=== PATIENT | female | born 1990 | race Caucasian/White ===

== ENCOUNTER 2023-04-25 17:01 | Inpatient (IN) | payer SELFPAY ==
[2023-04-25] VITALS (134 sets, daily range): BP systolic 112–190; BP diastolic 56–105; PULSE 66–251; RESP 15–18; TEMP 36.6–36.8; O2SAT 83–100; BMI 28.3
--- NOTE | 2023-04-25 13:58 | CT_ITS ---
STUDY: CT ABDOMEN AND PELVIS WITH CONTRAST REASON FOR EXAM: Female, 33 years old. RUQ pain, vaginal delivery yesterday, hx GB problems 5 years ago RADIATION DOSAGE (If Supplied By Facility): CTDIvol = ( 12.40 ) mGy, DLP = ( 831.43 ) mGycm TECHNIQUE: Transaxial images were obtained from the dome of the diaphragm to the symphysis pubis without oral contrast. IV 100mL Isovue-300 was administered. Sagittal and coronal images were reconstructed. Individualized dose optimization techniques were used for this CT. COMPARISON: None. FINDINGS: Small bilateral pleural effusions with bibasilar atelectasis. The visualized portions of the heart are within normal limits. Normal liver. There is contraction of the gallbladder. Questionable gallstones and thickening of the gallbladder wall. Minimal degree of central intrahepatic biliary ductal dilatation. Correlation with ultrasound is recommended. Normal spleen. Normal pancreas. Normal bilateral adrenal glands. Normal right kidney. Normal left kidney. Normal visualized stomach. Normal small intestine. Normal colon. The appendix is visualized and appears normal. Normal abdominal aorta. Normal inferior vena cava. Normal retroperitoneum. Normal urinary bladder. Diffuse enlargement of the uterus with increased vascularity and prominent endometrial thickening. Normal abdominal wall. Normal osseous structures. CT/Abdomen/Pelvis W IV Cont ONLY IMPRESSION: Diffuse enlargement of the uterus with increased vascularity and endometrial thickening in keeping with recent vaginal delivery. I cannot rule out retained products of conception. Correlation with ultrasound of the uterus is recommended as well as ultrasound of the gallbladder. Thickening of the gallbladder wall and contraction and possible gallstones. Small bilateral pleural effusions with bibasilar atelectasis. Electronically Signed: John Hearn MD at 15:21 EDT ,
[2023-04-25] MEDS: Lactated Ringers 1,000 ML 30 ML IV (14:00)
[2023-04-25 14:49] LABS: Hematocrit 30.7 % (37-47); Hemoglobin 10.7 g/dL (12.0-15.0); Mean Corp Hgb Conc 34.9 g/dL (32-36); Mean Corpuscular Hgb 33.6 pg (27.0-32.0); Mean Corpuscular Volume 96.5 fL (81-99); Mean Platelet Vol. 10.4 fl (6.2-12.0); Platelet Count 123 K/mm3 (150-450); RBC Distribution Width CV 13.2 % (11.6-14.6); RBC Distribution Width SD 46.8 fl (35.1-43.9); Red Blood Count 3.18 M/mm3 (4.2-5.4); White Blood Count 11.4 K/mm3 (4.4-11.0)
[2023-04-25 15:00] LABS: CREATININE FINGERSTICK < 1.0 mg/dL (0.55-1.02); EGFR FINGERSTICK > 60.0000 mL/min (>60)
[2023-04-25 15:00] LABS: AST(SGOT) 200 U/L (15-37); Alanine Aminotransfer ALT/SGPT 198 U/L (13-56); Creatinine, Serum 0.71 mg/dL (0.55-1.02); EST Glomerular Filtration Rate 101 mL/min (>60); Est Glom Filt Rate - Afr Amer 123 mL/min (>60); Uric Acid 5.8 mg/dL (2.6-6.0)
[2023-04-25] MEDS: Magnesium Sulfate 4gm/100mL 4 GM/100 ML IV.SOLN. IV (15:25)
[2023-04-25] MEDS: Magnesium Sulfate 20 GM/500 ML BAG IV (15:45)
[2023-04-25] MEDS: NIFEdipine 30 MG Tablet PO (15:48)
[2023-04-25 16:11] LABS: Prothrombin Time (Protime)PT. 12.9 SECONDS (11.7-14.9)
[2023-04-25 16:12] LABS: Partial Thromboplast Time 28.1 Seconds (24.1-36.2)
[2023-04-25 16:26] LABS: Fibrinogen 311 mg/dl (203-444)
[2023-04-25] MEDS: Labetalol (Prefilled) 20 MG/4 ML IV ×3 (16:30→22:51)
--- NOTE | 2023-04-25 16:53 | PCM.HP.OB ---
HPI - General HPI Narrative PATSY CONNELLY, is a 33 y/o who presents to L&D with a community health worker after delivery at a birthing center late last night. Around 4 am she started vomiting and complaining of right upper quadrant pain. Her blood pressures were elevated and the deputy county attorney called for advice. It was recommended that she bring her patient here or to the nearest emergency location. Upon arrival the patient denies nausea or current pain. She denies headaches, visual changes, chest pain, or shortness of breath. A CT was ordered stat and showed the following: FINDINGS: Small bilateral pleural effusions with bibasilar atelectasis. The visualized portions of the heart are within normal limits. Normal liver. There is contraction of the gallbladder. Questionable gallstones and thickening of the gallbladder wall. Minimal degree of central intrahepatic biliary ductal dilatation. Correlation with ultrasound is recommended. Normal spleen. Normal pancreas. Normal bilateral adrenal glands. Normal right kidney. Normal left kidney. Normal visualized stomach. Normal small intestine. Normal colon. The appendix is visualized and appears normal. Normal abdominal aorta. Normal inferior vena cava. Normal retroperitoneum. Normal urinary bladder. Diffuse enlargement of the uterus with increased vascularity and prominent endometrial thickening. Normal abdominal wall. Normal osseous structures. CT/Abdomen/Pelvis W IV Cont ONLY IMPRESSION: Diffuse enlargement of the uterus with increased vascularity and endometrial thickening in keeping with recent vaginal delivery. I cannot rule out retained products of conception. Correlation with ultrasound of the uterus is recommended as well as ultrasound of the gallbladder. Thickening of the gallbladder wall and contraction and possible gallstones. Small bilateral pleural effusions with bibasilar atelectasis. MFM from [place] was consulted and recommended us repeat the labs in 6 hours and if worsening would consider transport. PFSH PFSH Home Medications calcium carbonate 600 mg calcium (1,500 mg) tablet (Calcium) 600 mg PO DAILY 04/25/23 [History Last Taken 04/24/23] vit no.133-ferrous fumarate 28 mg-folic acid 800 mcg tablet () tab PO 04/25/23 [History Last Taken 04/24/23] Allergy/AdvReac Type Severity Reaction Status Date / Time malave Allergy Mild Other Verified 04/25/23 15:43 house dust Allergy Mild Other Verified 04/25/23 15:43 tree and shrub pollen Allergy Mild Other Verified 04/25/23 15:43 ROS Constitutional Constitutional: Denies change in weight, fatigue, fever(s), headache(s), poor appetite or weakness Eyes Eyes: Denies blurry vision, change in vision, seeing flashes or spots in vision ENT HEENT: Denies dizziness, headache(s), loss taste/smell or sore throat Cardiovascular Cardiovascular: Denies chest pain, dizziness, dyspnea, irregular heart rhythm, leg edema, palpitations, rapid heart rate or vomiting Respiratory/Chest Respiratory/Chest: Denies chest tightness, cough, dyspnea or breast pain Gastrointestinal Gastrointestinal: Denies abdominal pain, anorexia, constipation, cramping, diarrhea, hemorrhoids, vomiting or weight changes Genitourinary Genitourinary: Denies dysuria, flank pain, genital lesions, genital pain, urinary frequency or urinary urgency Musculoskeletal Musculoskeletal: Denies back pain, difficulty walking, joint pain, limited range of motion, muscle cramps or numbness Integumentary Integumentary: Denies lesions or unusual bruising Neurologic Neurologic: Denies abnormal movements, abnormal speech, dizziness, numbness, seizure-like activity or syncope Psychiatric Psychiatric: Denies anxiety, behavioral changes, change in appetite, change in libido, cognitive impairment, confusion, depression, difficulty concentrating, hallucinations or suicidal thoughts Endocrine Endocrinology: Denies excessive sweating, polydipsia or polyuria Hematologic/Lymphatic Hematologic/Lymphatic: Denies easy bleeding, easy bruising or lymphadenopathy Allergic/Immunologic Allergic/Immunologic: Denies itchy eyes, lip swelling, seasonal rhinorrhea, rhinitis, throat swelling, tongue swelling, eczemia, wheezing or asthma Vital Signs Vital Signs Vital Signs: 04/25/23 14:08 04/25/23 14:08 04/25/23 15:10 Temperature Temperature Source Pulse Rate 81 165 H Respiratory Rate Respiratory Effort Respiratory Depth Respiratory Pattern Blood Pressure 151/98 H Blood Pressure Mean BP Systolic 151 BP Diastolic 98 Blood Pressure Source Blood Pressure Position Blood Pressure Location Pulse Ox Oxygen Delivery Method 04/25/23 15:10 04/25/23 15:11 04/25/23 15:11 Temperature Temperature Source Pulse Rate 69 Respiratory Rate Respiratory Effort Respiratory Depth Respiratory Pattern Blood Pressure 170/103 H Blood Pressure Mean BP Systolic 170 BP Diastolic 103 Blood Pressure Source Blood Pressure Position Blood Pressure Location Pulse Ox 83 Oxygen Delivery Method 04/25/23 15:13 04/25/23 15:13 04/25/23 15:18 Temperature Temperature Source Pulse Rate 71 73 Respiratory Rate Respiratory Effort Respiratory Depth Respiratory Pattern Blood Pressure Blood Pressure Mean BP Systolic BP Diastolic Blood Pressure Source Blood Pressure Position Blood Pressure Location Pulse Ox 98 Oxygen Delivery Method 04/25/23 15:18 04/25/23 15:23 04/25/23 15:23 Temperature Temperature Source Pulse Rate 78 Respiratory Rate Respiratory Effort Respiratory Depth Respiratory Pattern Blood Pressure Blood Pressure Mean BP Systolic BP Diastolic Blood Pressure Source Blood Pressure Position Blood Pressure Location Pulse Ox 98 98 Oxygen Delivery Method 04/25/23 15:28 04/25/23 15:28 04/25/23 15:25 Temperature Temperature Source Temporal Pulse Rate 83 Respiratory Rate Respiratory Effort Respiratory Depth Respiratory Pattern Blood Pressure Blood Pressure Mean BP Systolic BP Diastolic Blood Pressure Source Blood Pressure Position Blood Pressure Location Pulse Ox 97 Oxygen Delivery Method 04/25/23 15:33 04/25/23 15:33 04/25/23 15:38 Temperature Temperature Source Pulse Rate 87 Respiratory Rate Respiratory Effort Respiratory Depth Respiratory Pattern Blood Pressure 153/99 H Blood Pressure Mean BP Systolic 153 BP Diastolic 99 Blood Pressure Source Blood Pressure Position Blood Pressure Location Pulse Ox 97 Oxygen Delivery Method 04/25/23 15:38 04/25/23 15:38 04/25/23 15:43 Temperature Temperature Source Pulse Rate 77 80 Respiratory Rate Respiratory Effort Respiratory Depth Respiratory Pattern Blood Pressure Blood Pressure Mean BP Systolic BP Diastolic Blood Pressure Source Blood Pressure Position Blood Pressure Location Pulse Ox 97 Oxygen Delivery Method 04/25/23 15:43 04/25/23 15:48 04/25/23 15:48 Temperature Temperature Source Pulse Rate 84 Respiratory Rate Respiratory Effort Respiratory Depth Respiratory Pattern Blood Pressure Blood Pressure Mean BP Systolic BP Diastolic Blood Pressure Source Blood Pressure Position Blood Pressure Location Pulse Ox 97 97 Oxygen Delivery Method 04/25/23 15:53 04/25/23 15:53 04/25/23 15:53 Temperature Temperature Source Pulse Rate 77 Respiratory Rate Respiratory Effort Respiratory Depth Respiratory Pattern Blood Pressure 160/102 H Blood Pressure Mean BP Systolic 160 BP Diastolic 102 Blood Pressure Source Blood Pressure Position Blood Pressure Location Pulse Ox 97 Oxygen Delivery Method 04/25/23 15:53 04/25/23 15:58 04/25/23 15:58 Temperature Temperature Source Pulse Rate 73 77 Respiratory Rate Respiratory Effort Respiratory Depth Respiratory Pattern Blood Pressure Blood Pressure Mean BP Systolic BP Diastolic Blood Pressure Source Blood Pressure Position Blood Pressure Location Pulse Ox 99 Oxygen Delivery Method 04/25/23 16:03 04/25/23 16:03 04/25/23 16:08 Temperature Temperature Source Pulse Rate 80 Respiratory Rate Respiratory Effort Respiratory Depth Respiratory Pattern Blood Pressure 164/105 H Blood Pressure Mean BP Systolic 164 BP Diastolic 105 Blood Pressure Source Blood Pressure Position Blood Pressure Location Pulse Ox 97 Oxygen Delivery Method 04/25/23 16:08 04/25/23 16:08 04/25/23 16:10 Temperature Temperature Source Pulse Rate 75 Respiratory Rate Respiratory Effort Respiratory Depth Respiratory Pattern Blood Pressure Blood Pressure Mean BP Systolic BP Diastolic Blood Pressure Source Blood Pressure Position Blood Pressure Location Pulse Ox 98 83 Oxygen Delivery Method 04/25/23 15:40 04/25/23 16:32 04/25/23 16:32 Temperature Temperature Source Temporal Pulse Rate 81 Respiratory Rate Respiratory Effort Respiratory Depth Respiratory Pattern Blood Pressure 169/96 H Blood Pressure Mean BP Systolic 169 BP Diastolic 96 Blood Pressure Source Blood Pressure Position Blood Pressure Location Pulse Ox Oxygen Delivery Method 04/25/23 16:32 04/25/23 16:32 04/25/23 16:32 Temperature Temperature Source Pulse Rate 68 Respiratory Rate Respiratory Effort Respiratory Depth Respiratory Pattern Blood Pressure 162/94 H Blood Pressure Mean BP Systolic 162 BP Diastolic 94 Blood Pressure Source Blood Pressure Position Blood Pressure Location Pulse Ox 99 Oxygen Delivery Method 04/25/23 16:37 04/25/23 16:37 04/25/23 16:42 Temperature Temperature Source Pulse Rate 78 78 Respiratory Rate Respiratory Effort Respiratory Depth Respiratory Pattern Blood Pressure Blood Pressure Mean BP Systolic BP Diastolic Blood Pressure Source Blood Pressure Position Blood Pressure Location Pulse Ox 99 Oxygen Delivery Method 04/25/23 16:42 04/25/23 16:47 04/25/23 16:47 Temperature Temperature Source Pulse Rate 72 Respiratory Rate Respiratory Effort Respiratory Depth Respiratory Pattern Blood Pressure 150/92 H Blood Pressure Mean BP Systolic 150 BP Diastolic 92 Blood Pressure Source Blood Pressure Position Blood Pressure Location Pulse Ox 98 Oxygen Delivery Method 04/25/23 16:47 04/25/23 16:47 04/25/23 16:52 Temperature Temperature Source Pulse Rate 75 75 Respiratory Rate Respiratory Effort Respiratory Depth Respiratory Pattern Blood Pressure Blood Pressure Mean BP Systolic BP Diastolic Blood Pressure Source Blood Pressure Position Blood Pressure Location Pulse Ox 98 Oxygen Delivery Method 04/25/23 16:52 04/25/23 15:25 04/25/23 15:40 Temperature 98.0 F 97.8 F Temperature Source Temporal Temporal Pulse Rate 79 73 Respiratory Rate 16 15 Respiratory Effort Normal Respiratory Depth Normal Respiratory Pattern Normal Blood Pressure 170/103 H 153/99 H Blood Pressure Mean 125 117 BP Systolic BP Diastolic Blood Pressure Source Monitor Monitor Blood Pressure Position Semi-Fowlers Semi-Fowlers Blood Pressure Location Right Arm Right Arm Pulse Ox 98 98 97 Oxygen Delivery Method Room Air Room Air 04/25/23 15:55 04/25/23 16:10 Temperature Temperature Source Pulse Rate 73 75 Respiratory Rate 16 15 Respiratory Effort Respiratory Depth Respiratory Pattern Blood Pressure 160/102 H 164/105 H Blood Pressure Mean 121 124 BP Systolic BP Diastolic Blood Pressure Source Monitor Monitor Blood Pressure Position Semi-Fowlers Semi-Fowlers Blood Pressure Location Right Arm Right Arm Pulse Ox 97 98 Oxygen Delivery Method Room Air Room Air Weight Weight: 164 lb 12.8 oz Body Mass Index (BMI) 28.3 Physical Exam Const alert, oriented x3, no apparent distress and healthy appearing General Appearance: cooperative; Negative for anxious HEENT normocephalic Face and Sinus: normal facial exam Eyes EOMs intact bilaterally and no scleral icterus General Eye: normal appearance of both eyes Neck full ROM and supple Lymph Lymphatic: no lymphadenopathy noted Chest Chest: abnormal inspection of the chest Resp normal respiratory effort Effort and Inspection: able to speak in complete sentences Cardio regular rate GI soft to palpation and non-tender Palpation: soft; Negative for tender Back/Spine no CVA tenderness Extremity normal to inspection, full ROM and no clubbing, cyanosis or edema General Extremity: Negative for calf tenderness or edema Skin Lesions: no lesions Rashes: no rashes Psych mental status grossly normal Labs Labs Labs: Hct 30.7 % (37-47) L Hgb 10.7 g/dL (12.0-15.0) L Assessment & Plan (1) HELLP syndrome, delivered, current hospitalization: PLAN: 1. labs: pts are currently 123 and LFTs are 200 and 198. coags are stable - rpt in [address] shows no evidence of hepatomegaly but does show some gall bladder thickening and stones. - pain is zero/10 currently. will reassess after she eats if need to consult GS - motrin and percocet prn. 3. hypertension- pt was given procardia 30 xl. Hypertensive emergency protocol ordered. will continue procardia 30 xl bid 4. plan for daily weights 5. regular diet 6. ok for baby to come to unit to breast feed and frey. Charges/Coding Multi Select Codes Visit Charges Visit Charges: 78984 Init Hosp L3
--- NOTE | 2023-04-25 17:18 | NURSING ---
YEHUDA Schilling assuming care.
--- NOTE | 2023-04-25 17:23 | NURSING ---
1650: on unit assessing pt and discussing plan of care. Pt verb understanding and agrees with plan. stating [facility] recommends keeping pt here and repeating labs at 2000 tonight.
--- NOTE | 2023-04-25 17:24 | NURSING ---
1400: Anabelle Ny called prior to arrival w/ pt's history. giving orders for CT scan and pre-e labs.
--- NOTE | 2023-04-25 17:26 | NURSING ---
1623: Called . Aware initial BP 151/98 with epigastric pain. okay with pt going to CT scan at this time.
--- NOTE | 2023-04-25 17:32 | NURSING ---
1625: ordering labetelol protocol for BP's 164/105 and 160/102. aware of all pre-e lab work as well. stating she called MFM and rec. to repeat CBC,CMP, Coags, and uric acid at 1999.
--- NOTE | 2023-04-25 17:36 | NURSING ---
1500: ordering magnesium sulfate and procardia 30 mg XL.
[2023-04-25 20:04] LABS: Hematocrit 35.2 % (37-47); Hemoglobin 12.4 g/dL (12.0-15.0); Mean Corp Hgb Conc 35.2 g/dL (32-36); Mean Corpuscular Hgb 33.6 pg (27.0-32.0); Mean Corpuscular Volume 95.4 fL (81-99); Mean Platelet Vol. 9.9 fl (6.2-12.0); Platelet Count 114 K/mm3 (150-450); RBC Distribution Width CV 13.2 % (11.6-14.6); RBC Distribution Width SD 46.4 fl (35.1-43.9); Red Blood Count 3.69 M/mm3 (4.2-5.4); White Blood Count 10.2 K/mm3 (4.4-11.0)
[2023-04-25 20:15] LABS: Prothrombin Time (Protime)PT. 12.8 SECONDS (11.7-14.9)
[2023-04-25 20:16] LABS: Partial Thromboplast Time 26.7 Seconds (24.1-36.2)
[2023-04-25 20:22] LABS: AST(SGOT) 204 U/L (15-37); Alanine Aminotransfer ALT/SGPT 210 U/L (13-56); Creatinine, Serum 0.56 mg/dL (0.55-1.02); EST Glomerular Filtration Rate 134 mL/min (>60); Est Glom Filt Rate - Afr Amer 162 mL/min (>60); Uric Acid 5.4 mg/dL (2.6-6.0)
[2023-04-25 20:26] LABS: Magnesium 5.1 mg/dL (1.6-2.6)
--- NOTE | 2023-04-25 21:00 | NURSING ---
late entry: baby girl at bedside with mother, accompanied by grandmother. cuddles tag 12 placed on infants right ankle with a maternal id band by Donna BLACKMAN
[2023-04-25 22:22] LABS: LDH 731 U/L (84-246)
[2023-04-25] MEDS: Labetalol 200 MG Tablet PO (22:40)
[2023-04-25] MEDS: Acetaminophen 500 MG Tablet 1000 MG PO (22:41)
[2023-04-26] VITALS (186 sets, daily range): BP systolic 92–141; BP diastolic 49–83; PULSE 72–165; RESP 14–17; TEMP 36.2–37.1; O2SAT 83–100
[2023-04-26] MEDS: Magnesium Sulfate 20 GM/500 ML BAG IV ×2 (02:03→12:05)
[2023-04-26 02:34] LABS: Hematocrit 29.9 % (37-47); Hemoglobin 10.4 g/dL (12.0-15.0); Mean Corp Hgb Conc 34.8 g/dL (32-36); Mean Corpuscular Hgb 33.7 pg (27.0-32.0); Mean Corpuscular Volume 96.8 fL (81-99); Mean Platelet Vol. 9.6 fl (6.2-12.0); POSITIVE COUNT YES; Platelet Count 91 K/mm3 (150-450); RBC Distribution Width CV 13.7 % (11.6-14.6); RBC Distribution Width SD 47.7 fl (35.1-43.9); Red Blood Count 3.09 M/mm3 (4.2-5.4)
[2023-04-26 02:45] LABS: Prothrombin Time (Protime)PT. 13.4 SECONDS (11.7-14.9)
[2023-04-26 02:46] LABS: Partial Thromboplast Time 27.7 Seconds (24.1-36.2)
[2023-04-26 02:52] LABS: AST(SGOT) 199 U/L (15-37); Alanine Aminotransfer ALT/SGPT 225 U/L (13-56); Creatinine, Serum 0.63 mg/dL (0.55-1.02); EST Glomerular Filtration Rate 117 mL/min (>60); Est Glom Filt Rate - Afr Amer 142 mL/min (>60); Estimated Creatinine Clearance 126.93 ml/min; LDH 669 U/L (84-246); Uric Acid 5.6 mg/dL (2.6-6.0)
[2023-04-26 03:15] LABS: Magnesium 6.1 mg/dL (1.6-2.6)
[2023-04-26 03:57] LABS: Scan Indicated on CBC? Y/N YES- FLAGS NOTED
[2023-04-26] MEDS: Rho(D) Immune Globulin 300 MCG (1500 Unit) Syringe IV (05:44)
--- NOTE | 2023-04-26 05:57 | NURSING ---
When this RN entered room, pt resting in bed, pts mother resting on couch at bedside. noted to be laying on back in crib with thick fuzzy blanket loosely wrapped around infant and infants face covered completely with blanket. crib mattress noted to be propped up with a fitted bed sheet under the mattress and a blanket was rolled up and laid next to infant. safe sleeping discussed with pt and pts mother. this RN demonstrated how to safely swaddle and removed thick fuzzy blanket, extra blanket in crib, and the sheet that was propping up the mattress. pt and grandmother verbalized understanding
--- NOTE | 2023-04-26 06:00 | US_ITS ---
STUDY: ABDOMINAL ULTRASOUND - RIGHT UPPER QUADRANT REASON FOR VISIT: Female, 33 years old Epigastric pain -- right upper quadrant TECHNIQUE: Ultrasound evaluation of the right upper quadrant was performed with real-time and static rois-scale imaging. TECHNICAL QUALITY: Adequate. COMPARISON: None. FINDINGS: Liver: The liver measures 15.6 cm. There is normal echogenicity of the liver. The bile ducts are within normal limits. There is hepatic color flow. The direction of portal flow is hepatopetal. There is no demonstrated mass lesion. Gallbladder: Normal distended gallbladder. The gallbladder wall measures 2 mm. There is a negative sonographic Maya''s sign. There is no pericholecystic fluid. There are no gallstones. Common Bile Duct (C.B.D.): The common bile duct measures 3 mm. Pancreas: Normal size of the head, body and tail of the pancreas. There is normal echogenicity of the pancreas. There is no demonstrated pancreatic mass or cyst. Right Kidney: Normal size of the right kidney. The right kidney measures 11.1 cm. Normal renal cortex. The right cortex measures 1.1 cm. There is no demonstrated renal mass or cyst. There is no right hydronephrosis. US/Abdomen Limited IMPRESSION: Normal right upper quadrant ultrasound examination. Electronically Signed: Schuyler Beth MD at 10:07 EDT ,
--- NOTE | 2023-04-26 06:12 | NURSING ---
0600 dose of 200mg labetalol held per Dr. Jacobs
[2023-04-26 09:30] LABS: Hematocrit 30.2 % (37-47); Hemoglobin 10.4 g/dL (12.0-15.0); Mean Corp Hgb Conc 34.4 g/dL (32-36); Mean Corpuscular Hgb 34.1 pg (27.0-32.0); Mean Platelet Vol. 9.7 fl (6.2-12.0); POSITIVE COUNT YES; Platelet Count 99 K/mm3 (150-450); RBC Distribution Width CV 14.1 % (11.6-14.6); RBC Distribution Width SD 50.6 fl (35.1-43.9); Red Blood Count 3.05 M/mm3 (4.2-5.4); White Blood Count 7.7 K/mm3 (4.4-11.0)
[2023-04-26 09:37] LABS: Prothrombin Time (Protime)PT. 12.7 SECONDS (11.7-14.9)
[2023-04-26 09:38] LABS: Partial Thromboplast Time 26.7 Seconds (24.1-36.2)
[2023-04-26 09:55] LABS: AST(SGOT) 144 U/L (15-37); Alanine Aminotransfer ALT/SGPT 198 U/L (13-56); Creatinine, Serum 0.53 mg/dL (0.55-1.02); EST Glomerular Filtration Rate 143 mL/min (>60); Est Glom Filt Rate - Afr Amer 173 mL/min (>60); Estimated Creatinine Clearance 150.88 ml/min; Uric Acid 5.8 mg/dL (2.6-6.0)
--- NOTE | 2023-04-26 10:00 | PCM.PN.OB ---
Subjective Subjective Patient doing well without complaints. Denies chest pain, shortness of breath, calf pain/swelling, fevers, chills. She does feel lightheadedness. Due to her complaint of pain with breast feeding, we were trying formula and milk that she had stored and holding off on breast feeding for now. Since holding off, her ruq pain has been minimal to none. Her RUQ ultrasound is from this am shows the following: Liver: The liver measures 15.6 cm. There is normal echogenicity of the liver. The bile ducts are within normal limits. There is hepatic color flow. The direction of portal flow is hepatopetal. There is no demonstrated mass lesion. Gallbladder: Normal distended gallbladder. The gallbladder wall measures 2 mm. There is a negative sonographic Maya''s sign. There is no pericholecystic fluid. There are no gallstones. Common Bile Duct (C.B.D.): The common bile duct measures 3 mm. Pancreas: Normal size of the head, body and tail of the pancreas. There is normal echogenicity of the pancreas. There is no demonstrated pancreatic mass or cyst. Right Kidney: Normal size of the right kidney. The right kidney measures 11.1 cm. Normal renal cortex. The right cortex measures 1.1 cm. There is no demonstrated renal mass or cyst. There is no right hydronephrosis. US/Abdomen Limited IMPRESSION: Normal right upper quadrant ultrasound examination. Objective Data Objective Data Vital Signs: Vital Signs Temp Pulse Resp BP Pulse Ox O2 Del Method 97.8 F 98 15 115/70 98 Room Air 04/26/23 08:00 04/26/23 09:57 04/26/23 09:00 04/26/23 09:07 04/26/23 09:57 04/26/23 09:00 Oxygen Delivery Method Room Air Weight: 164 lb 12.8 oz Body Mass Index (BMI) 28.3 Intake & Output: Intake and Output for Last 24 Hours 04/24/23 04/25/23 04/26/23 23:59 23:59 23:59 Intake Total 510 / 510 880 / 880 Output Total 3100 / 3100 850 / 850 Balance -2590 / -2590 30 / 30 Lab / Micro Data 04/26/23 09:15 04/26/23 09:15 Labs: Laboratory Results - last 24 hr 04/25/23 14:00: Blood Type B NEGATIVE, Antibody Screen NEGATIVE, Screen NEGATIVE, Baby's Blood Type PRESUMED RH POS, Baby's CIRO TNP 04/25/23 14:30: WBC 11.4 H, RBC 3.18 L, Hgb 10.7 L, Hct 30.7 L, MCV 96.5, MCH 33.6 H, MCHC 34.9, RDW Std Deviation 46.8 H, RDW Coeff of Izzy 13.2, Plt Count 123 L, MPV 10.4, Creatinine 0.71, Est GFR (MDRD) Af Amer 123, Est GFR (MDRD) Non-Af 101, Uric Acid 5.8, AST 200 H, ALT 198 H 04/25/23 14:42: POC Creatinine < 1.0, POC Estimated GFR (eGFR) > 60.0000 04/25/23 15:15: PT 12.9, INR 1.0, APTT 28.1, Fibrinogen 311 04/25/23 19:55: WBC 10.2, RBC 3.69 L, Hgb 12.4, Hct 35.2 L, MCV 95.4, MCH 33.6 H, MCHC 35.2, RDW Std Deviation 46.4 H, RDW Coeff of Izzy 13.2, Plt Count 114 L, MPV 9.9, PT 12.8, INR 1.0, APTT 26.7, Creatinine 0.56, Estim Creat Clear Calc 142.80, Est GFR (MDRD) Af Amer 162, Est GFR (MDRD) Non-Af 134, Uric Acid 5.4, Magnesium 5.1 H*, AST 204 H, ALT 210 H, Lactate Dehydrogenase 731 H 04/26/23 02:15: WBC 10.0, RBC 3.09 L, Hgb 10.4 L, Hct 29.9 L, MCV 96.8, MCH 33.7 H, MCHC 34.8, RDW Std Deviation 47.7 H, RDW Coeff of Izzy 13.7, Plt Count 91 L, MPV 9.6, PT 13.4, INR 1.0, APTT 27.7, Creatinine 0.63, Estim Creat Clear Calc 126.93, Est GFR (MDRD) Af Amer 142, Est GFR (MDRD) Non-Af 117, Uric Acid 5.6, Magnesium 6.1 H*, AST 199 H, ALT 225 H, Lactate Dehydrogenase 669 H 04/26/23 09:15: WBC 7.7, RBC 3.05 L, Hgb 10.4 L, Hct 30.2 L, MCV 99.0, MCH 34.1 H, MCHC 34.4, RDW Std Deviation 50.6 H, RDW Coeff of Izzy 14.1, Plt Count 99 L, MPV 9.7, PT 12.7, INR 1.0, APTT 26.7, Creatinine 0.53 L, Estim Creat Clear Calc 150.88, Est GFR (MDRD) Af Amer 173, Est GFR (MDRD) Non-Af 143, Uric Acid 5.8, AST 144 H, ALT 198 H Radiography Diagnostic Testing: Radiology Impression Abdomen/Pelvis CT 04/25/23 13:58 IMPRESSION: Diffuse enlargement of the uterus with increased vascularity and endometrial thickening in keeping with recent vaginal delivery. I cannot rule out retained products of conception. Correlation with ultrasound of the uterus is recommended as well as ultrasound of the gallbladder. Thickening of the gallbladder wall and contraction and possible gallstones. Small bilateral pleural effusions with bibasilar atelectasis. Electronically Signed: John Hearn MD at 15:21 EDT Reading Location ID and State: [facility] / [place] , Service support , ROS Constitutional Constitutional: Denies chills, fatigue, fever(s), poor appetite or weakness Eyes Eyes: Denies blurry vision, change in vision, seeing flashes or spots in vision ENT HEENT: Denies dizziness, headache(s), loss taste/smell or sore throat Cardiovascular Cardiovascular: Denies chest pain, dizziness, dyspnea, irregular heart rhythm, palpitations or rapid heart rate Respiratory/Chest Respiratory/Chest: Denies chest tightness, cough, dyspnea or breast pain Gastrointestinal Gastrointestinal: Denies abdominal pain, constipation or vomiting Genitourinary Genitourinary: Denies dysuria or flank pain Musculoskeletal Musculoskeletal: Denies difficulty walking, joint pain, limited range of motion or numbness Neurologic Neurologic: Denies abnormal movements, abnormal speech, dizziness, numbness, seizure-like activity or syncope Psychiatric Psychiatric: Denies anxiety, behavioral changes, change in appetite, confusion, depression or suicidal thoughts Physical Exam Const alert, oriented x3 and no apparent distress General Appearance: cooperative and comfortable Resp normal respiratory effort Cardio regular rate GI normal to inspection, nondistended, normoactive bowel sounds GI Narrative: uterus is firm below umbilicus Palpation: soft Back/Spine no CVA tenderness and thoraco-lumbar ROM normal Extremity normal to inspection, no clubbing, cyanosis or edema, no calf tenderness and no pedal edema Psych mental status grossly normal, thought process normal, cooperative, affect normal, speech normal, activity/motor behavior normal, denies homicidal ideation and denies suicidal ideation Assessment & Plan (1) HELLP syndrome, delivered, current hospitalization: PLAN: HD #2 - labs are trending in the right direction and patient is feeling better -continue mag at current dose and decrease to 1 gram/hr at 3 pm due to symptoms -Regular diet as tolerated, however discussed low fat diet -pain with breast feeding- pt wants to try again with pain medication. no other reason for RUQ pain. we discussed that this is a very unusual side effect and typical pain is in the uterus. yesterday there were gall stones on CT and today they are gone. possibility of passing the stones was discussed. -apply and maintain SCDs -rpt labs tonight at 9 pm (12 hours from now) Charges/Coding Visit Charges Inpatient E&M: 59445 Subs Hosp L3
[2023-04-26 10:28] LABS: LDH 640 U/L (84-246); Magnesium 6.8 mg/dL (1.6-2.6)
--- NOTE | 2023-04-26 10:37 | NURSING ---
0940 dr meza into see pt; new orders received
--- NOTE | 2023-04-26 10:38 | NURSING ---
1020 pt up oob to br for AM care. returned to bed SCD'S on
[2023-04-26 21:01] LABS: Absolute Lymphocyte Count 1.93 X10^3/uL (0.83-4.51); Absolute Neutrophil Count 5.8 X10^3/uL (2.0-7.7); Basophil# 0.02 X10^3/uL; Basophil% 0.2 % (0-1); Eosinophil# 0.25 X10^3/uL; Eosinophils% 2.8 % (0-5); Hemoglobin 9.4 g/dL (12.0-15.0); Lymphocyte # 1.93 X10^3/ul (0.83-4.51); Lymphocyte % 21.7 % (19-41); Mean Corp Hgb Conc 33.6 g/dL (32-36); Mean Corpuscular Hgb 33.7 pg (27.0-32.0); Mean Corpuscular Volume 100.4 fL (81-99); Mean Platelet Vol. 10.5 fl (6.2-12.0); Monocyte# 0.86 X10^3/uL; Monocyte% 9.7 % (0-10); NRBC Flagged by Analyzer 0 % (0-5); Neutrophil # 5.79 X10^3/uL (2.7-7.7); Platelet Count 102 K/mm3 (150-450); RBC Distribution Width CV 14.1 % (11.6-14.6); RBC Distribution Width SD 51.4 fl (35.1-43.9); Red Blood Count 2.79 M/mm3 (4.2-5.4); White Blood Count 8.9 K/mm3 (4.4-11.0)
[2023-04-26 21:23] LABS: LDH 465 U/L (84-246)
[2023-04-26 21:27] LABS: ALB/GLOB Ratio 0.8 RATIO (0.9-2.4); AST(SGOT) 73 U/L (15-37); Alanine Aminotransfer ALT/SGPT 144 U/L (13-56); Albumin, Serum 2.4 g/dL (3.2-5.0); Alkaline Phosphatase 96 U/L (45-117); Anion Gap 3 (5-15); BUN 14 mg/dL (7-18); BUN/Creat Ratio 24.1 RATIO (10-20); Calcium,Total 6.5 mg/dL (8.5-10.1); Chloride 108 mmol/L (98-107); Creatinine, Serum 0.58 mg/dL (0.55-1.02); EST Glomerular Filtration Rate 128 mL/min (>60); Est Glom Filt Rate - Afr Amer 154 mL/min (>60); Estimated Creatinine Clearance 137.88 ml/min; Globulin 3.1 g/dL (2.2-4.2); Glucose 126 mg/dL (74-106); Potassium 3.6 mmol/L (3.5-5.1); Protein, Total 5.5 g/dL (6.4-8.2); Sodium Level 139 mmol/L (136-145)
[2023-04-27] VITALS (39 sets, daily range): BP systolic 116–141; BP diastolic 56–82; PULSE 72–96; RESP 14–17; TEMP 36.5–37.3; O2SAT 87–100
[2023-04-27] MEDS: Magnesium Sulfate 20 GM/500 ML BAG IV (04:08)
[2023-04-27 09:10] LABS: Absolute Lymphocyte Count 1.74 X10^3/uL (0.83-4.51); Absolute Neutrophil Count 6.5 X10^3/uL (2.0-7.7); Basophil# 0.03 X10^3/uL; Basophil% 0.3 % (0-1); Eosinophil# 0.28 X10^3/uL; Hemoglobin 10.3 g/dL (12.0-15.0); Lymphocyte # 1.74 X10^3/ul (0.83-4.51); Lymphocyte % 18.7 % (19-41); Mean Corp Hgb Conc 33.2 g/dL (32-36); Mean Corpuscular Hgb 33.1 pg (27.0-32.0); Mean Corpuscular Volume 99.7 fL (81-99); Monocyte# 0.71 X10^3/uL; Monocyte% 7.6 % (0-10); NRBC Flagged by Analyzer 0 % (0-5); Neutrophil # 6.49 X10^3/uL (2.7-7.7); Neutrophil % 69.9 % (47-70); Platelet Count 116 K/mm3 (150-450); RBC Distribution Width CV 14.3 % (11.6-14.6); RBC Distribution Width SD 51.6 fl (35.1-43.9); Red Blood Count 3.11 M/mm3 (4.2-5.4); White Blood Count 9.3 K/mm3 (4.4-11.0)
[2023-04-27 09:27] LABS: ALB/GLOB Ratio 0.7 RATIO (0.9-2.4); AST(SGOT) 52 U/L (15-37); Alanine Aminotransfer ALT/SGPT 120 U/L (13-56); Albumin, Serum 2.3 g/dL (3.2-5.0); Alkaline Phosphatase 96 U/L (45-117); Anion Gap 4 (5-15); BUN 11 mg/dL (7-18); Calcium,Total 6.6 mg/dL (8.5-10.1); Chloride 109 mmol/L (98-107); Creatinine, Serum 0.48 mg/dL (0.55-1.02); EST Glomerular Filtration Rate 160 mL/min (>60); Est Glom Filt Rate - Afr Amer 193 mL/min (>60); Globulin 3.4 g/dL (2.2-4.2); Glucose 88 mg/dL (74-106); LDH 410 U/L (84-246); Potassium 3.8 mmol/L (3.5-5.1); Protein, Total 5.7 g/dL (6.4-8.2); Sodium Level 139 mmol/L (136-145)
[2023-04-27 09:52] LABS: Magnesium 5.6 mg/dL (1.6-2.6)
--- NOTE | 2023-04-27 09:55 | PCM.PN.OB ---
Subjective Subjective pt is sitting up in bed. Magnesium sulfate was just turned off and she states that she feels much much better. She denies headaches, visual changes, or abdominal pain. she is back to breast feeding without difficulty. She is ambulating and voiding well also. Objective Data Objective Data Vital Signs: Vital Signs Temp Pulse Resp BP Pulse Ox O2 Del Method 98.2 F 76 17 137/77 H 100 Room Air 04/27/23 08:52 04/27/23 08:52 04/27/23 08:52 04/27/23 08:52 04/27/23 08:52 04/27/23 08:52 Oxygen Delivery Method Room Air Weight: 164 lb 12.8 oz Body Mass Index (BMI) 28.3 Intake & Output: Intake and Output for Last 24 Hours 04/25/23 04/26/23 04/27/23 23:59 23:59 23:59 Intake Total 510 / 510 2555.83 / 2555.83 1582.00 / 1582.00 Output Total 3100 / 3100 2550 / 2550 950 / 950 Balance -2590 / -2590 5.83 / 5.83 632.00 / 632.00 Lab / Micro Data 04/27/23 08:55 04/27/23 08:55 Labs: Laboratory Results - last 24 hr 04/26/23 09:15: Creatinine 0.53 L, Estim Creat Clear Calc 150.88, Est GFR (MDRD) Af Amer 173, Est GFR (MDRD) Non-Af 143, Uric Acid 5.8, Magnesium 6.8 H*, AST 144 H, ALT 198 H, Lactate Dehydrogenase 640 H 04/26/23 20:50: WBC 8.9, RBC 2.79 L, Hgb 9.4 L, Hct 28.0 L, MCV 100.4 H, MCH 33.7 H, MCHC 33.6, RDW Std Deviation 51.4 H, RDW Coeff of Izzy 14.1, Plt Count 102 L, MPV 10.5, Immature Gran % (Auto) 0.600, Neut % (Auto) 65.0, Lymph % (Auto) 21.7, [place] % (Auto) 9.7, Eos % (Auto) 2.8, Baso % (Auto) 0.2, Absolute Neuts (auto) 5.8, Absolute Lymphs (auto) 1.93, Nucleated RBC % 0, Sodium 139, Potassium 3.6, Chloride 108 H, Carbon Dioxide 28.0, Anion Gap 3 L, BUN 14, Creatinine 0.58, Estim Creat Clear Calc 137.88, Est GFR (MDRD) Af Amer 154, Est GFR (MDRD) Non-Af 128, BUN/Creatinine Ratio 24.1 H, Glucose 126 H, Calcium 6.5 L*, Total Bilirubin 0.40, AST 73 H, ALT 144 H, Alkaline Phosphatase 96, Lactate Dehydrogenase 465 H, Total Protein 5.5 L, Albumin 2.4 L, Globulin 3.1, Albumin/Globulin Ratio 0.8 L 04/27/23 08:55: WBC 9.3, RBC 3.11 L, Hgb 10.3 L, Hct 31.0 L, MCV 99.7 H, MCH 33.1 H, MCHC 33.2, RDW Std Deviation 51.6 H, RDW Coeff of Izzy 14.3, Plt Count 116 L, MPV 10.0, Immature Gran % (Auto) 0.500, Neut % (Auto) 69.9, Lymph % (Auto) 18.7 L, [place] % (Auto) 7.6, Eos % (Auto) 3.0, Baso % (Auto) 0.3, Absolute Neuts (auto) 6.5, Absolute Lymphs (auto) 1.74, Nucleated RBC % 0, Sodium 139, Potassium 3.8, Chloride 109 H, Carbon Dioxide 26.0, Anion Gap 4 L, BUN 11, Creatinine 0.48 L, Estim Creat Clear Calc 166.60, Est GFR (MDRD) Af Amer 193, Est GFR (MDRD) Non-Af 160, BUN/Creatinine Ratio 23.0 H, Glucose 88, Calcium 6.6 L, Magnesium 5.6 H*, Total Bilirubin 0.40, AST 52 H, ALT 120 H, Alkaline Phosphatase 96, Lactate Dehydrogenase 410 H, Total Protein 5.7 L, Albumin 2.3 L, Globulin 3.4, Albumin/Globulin Ratio 0.7 L Radiography Diagnostic Testing: Radiology Impression Abdomen Ultrasound 04/26/23 06:00 IMPRESSION: Normal right upper quadrant ultrasound examination. Electronically Signed: Schuyler Beth MD at 10:07 EDT , ROS Constitutional Constitutional: Denies change in weight, chills, fatigue, fever(s), headache(s), poor appetite or weakness Eyes Eyes: Denies blurry vision, change in vision, seeing flashes or spots in vision ENT HEENT: Denies dizziness, headache(s), loss taste/smell or sore throat Cardiovascular Cardiovascular: Denies chest pain, dizziness, dyspnea, irregular heart rhythm, leg edema, palpitations, rapid heart rate or vomiting Respiratory/Chest Respiratory/Chest: Denies chest tightness, cough, dyspnea or breast pain Gastrointestinal Gastrointestinal: Denies abdominal pain, anorexia, constipation, cramping, diarrhea, hemorrhoids, vomiting or weight changes Genitourinary Genitourinary: Denies dysuria, flank pain, genital lesions, genital pain, urinary frequency or urinary urgency Musculoskeletal Musculoskeletal: Denies back pain, difficulty walking, joint pain, limited range of motion, muscle cramps or numbness Integumentary Integumentary: Denies lesions or unusual bruising Neurologic Neurologic: Denies abnormal movements, abnormal speech, dizziness, numbness, seizure-like activity or syncope Psychiatric Psychiatric: Denies anxiety, behavioral changes, change in appetite, change in libido, cognitive impairment, confusion, depression, difficulty concentrating, hallucinations or suicidal thoughts Endocrine Endocrinology: Denies excessive sweating, polydipsia or polyuria Hematologic/Lymphatic Hematologic/Lymphatic: Denies easy bleeding, easy bruising or lymphadenopathy Allergic/Immunologic Allergic/Immunologic: Denies itchy eyes, lip swelling, seasonal rhinorrhea, rhinitis, throat swelling, tongue swelling, eczemia, wheezing or asthma Physical Exam Const alert, oriented x3, no apparent distress and healthy appearing General Appearance: cooperative and comfortable; Negative for anxious HEENT normocephalic Eyes EOMs intact bilaterally and no scleral icterus General Eye: normal appearance of both eyes Neck full ROM and supple Lymph Lymphatic: no lymphadenopathy noted Chest Chest: abnormal inspection of the chest Resp normal respiratory effort Effort and Inspection: able to speak in complete sentences Cardio regular rate GI normal to inspection, nondistended, normoactive bowel sounds, soft to palpation and non-tender GI Narrative: uterus is firm below umbilicus Palpation: soft; Negative for tender Back/Spine no CVA tenderness and thoraco-lumbar ROM normal Extremity normal to inspection, full ROM, no clubbing, cyanosis or edema, no calf tenderness and no pedal edema General Extremity: Negative for calf tenderness or edema Skin Lesions: no lesions Rashes: no rashes Psych mental status grossly normal, thought process normal, cooperative, affect normal, speech normal, activity/motor behavior normal, denies homicidal ideation and denies suicidal ideation Assessment & Plan (1) HELLP syndrome, delivered, current hospitalization: PLAN: HD #3 - labs are trending in the right direction and patient is feeling better -Magnesium stopped -Regular diet as tolerated, however discussed low fat diet -start back on procardia 30 xl bid and if pressures are stable by tonight, may discharge back to birthing center per her request.
[2023-04-27] MEDS: NIFEdipine 30 MG Tablet PO (09:59)
--- NOTE | 2023-04-27 10:00 | DCINST_ITS ---
Discharge Instructions Diet Discharge Diet: No restrictions Activity Discharge Activity: Return to Normal Activity, May Not Drive (while taking narcotic pain medications.) and May Shower May resume sexual activity in: 4-6 weeks Dressing / Incision Call your doctor if your incision/area has: Continuous Slow Oozing, Sudden Increased Bleeding, Increased Pain/ Swelling, Increased Redness and Foul Smelling Discharge Follow Up Care Please Follow Up With: Val Stinson, When: Call [phone] to make an appointment with your doctor in 6 weeks. If you had elevated blood pressure or 4th degree laceration, you will need to be seen in 2 weeks. Test Results: Test results from this visit will be discussed in further detail at your follow- up appointment, if applicable. Discharge Plan Admission Reason For Visit: hellp syndrome Attending Provider: Val Stinson Primary Care Provider: Care Physician,Jessica Primary Instructions Patient Instructions: HELLP Syndrome Discharge Orders/Prescriptions Prescriptions: New nifedipine [Procardia XL] 30 mg tablet extended release 24hr 30 mg PO BID Qty: 60 3RF No Action calcium carbonate [Calcium 600] 600 mg calcium (1,500 mg) tablet 600 mg PO DAILY 28-800 mg-mcg tablet PO Referrals / Follow Up: Care Physician,No Primary [Primary Care Provider] - Disposition Patient Disposition: Home, Self Care
--- NOTE | 2023-04-27 14:29 | DS.PCM_ITS ---
Providers Primary Care Physician: No Primary Care Phys Reason For Visit: hellp syndrome Diagnosis Discharge Diagnosis (1) HELLP syndrome, delivered, current hospitalization: Status: Acute Code(s): O14.24 - HELLP syndrome, complicating childbirth Plan: HD #3 - labs are trending in the right direction and patient is feeling better -Magnesium stopped -Regular diet as tolerated, however discussed low fat diet -start back on procardia 30 xl bid and if pressures are stable by tonight, may discharge back to [facility] per her request. Medications at Discharge Home Medications calcium carbonate 600 mg calcium (1,500 mg) tablet (Calcium) 600 mg PO DAILY 04/25/23 vit no.133-ferrous fumarate 28 mg-folic acid 800 mcg tablet () tab PO 04/25/23 nifedipine 30 mg tablet,extended release 24 hr (Procardia XL) 30 mg PO BID #60 tabs 04/27/23 Hospital Course Operations None Procedures None Summary of Care Provided Minutes Spent on Discharge: 30 Hospital Course: The patient was admitted FridayApril 24 for management of HELLP syndrome. She was treated with magnesium sulfate, labetalol and procardia. Initially plts were trending down and lft's were trending up for the first 24 hours, however started to recover on hd #2. Her blood pressure went from severe range to low and magnesium was backed down to 1g/hr on hd#2. Her blood pressure medications were held. on the morning of HD #3 the magnesium sulfate was stopped completely and procardia 30 mg xl was continued. She wished to be transferred back to the [facility] that she came from the evening of 04/27/23 and was discharged in stable condition with plan for close outpatient follow up. Physical Exam Const alert, oriented x3 and no apparent distress General Appearance: cooperative and comfortable Resp normal respiratory effort Cardio regular rate GI normal to inspection, nondistended, normoactive bowel sounds GI Narrative: uterus is firm below umbilicus Palpation: soft Back/Spine no CVA tenderness and thoraco-lumbar ROM normal Extremity normal to inspection, no clubbing, cyanosis or edema, no calf tenderness and no pedal edema Psych mental status grossly normal, thought process normal, cooperative, affect normal, speech normal, activity/motor behavior normal, denies homicidal ideation and denies suicidal ideation Weight / BMI Weight Weight: 164 lb 12.8 oz Body Mass Index (BMI) 28.3 ABG / Lab / Microbiology Data 04/27/23 08:55 04/27/23 08:55 Laboratory: Laboratory Results - last 24 hr 04/26/23 20:50: WBC 8.9, RBC 2.79 L, Hgb 9.4 L, Hct 28.0 L, MCV 100.4 H, MCH 33.7 H, MCHC 33.6, RDW Std Deviation 51.4 H, RDW Coeff of Izzy 14.1, Plt Count 102 L, MPV 10.5, Immature Gran % (Auto) 0.600, Neut % (Auto) 65.0, Lymph % (Auto) 21.7, [place] % (Auto) 9.7, Eos % (Auto) 2.8, Baso % (Auto) 0.2, Absolute Neuts (auto) 5.8, Absolute Lymphs (auto) 1.93, Nucleated RBC % 0, Sodium 139, Potassium 3.6, Chloride 108 H, Carbon Dioxide 28.0, Anion Gap 3 L, BUN 14, Creatinine 0.58, Estim Creat Clear Calc 137.88, Est GFR (MDRD) Af Amer 154, Est GFR (MDRD) Non-Af 128, BUN/Creatinine Ratio 24.1 H, Glucose 126 H, Calcium 6.5 L*, Total Bilirubin 0.40, AST 73 H, ALT 144 H, Alkaline Phosphatase 96, Lactate Dehydrogenase 465 H, Total Protein 5.5 L, Albumin 2.4 L, Globulin 3.1, Albumin/Globulin Ratio 0.8 L 04/27/23 08:55: WBC 9.3, RBC 3.11 L, Hgb 10.3 L, Hct 31.0 L, MCV 99.7 H, MCH 33.1 H, MCHC 33.2, RDW Std Deviation 51.6 H, RDW Coeff of Izzy 14.3, Plt Count 116 L, MPV 10.0, Immature Gran % (Auto) 0.500, Neut % (Auto) 69.9, Lymph % (A uto) 18.7 L, [place] % (Auto) 7.6, Eos % (Auto) 3.0, Baso % (Auto) 0.3, Absolute Neuts (auto) 6.5, Absolute Lymphs (auto) 1.74, Nucleated RBC % 0, Sodium 139, Potassium 3.8, Chloride 109 H, Carbon Dioxide 26.0, Anion Gap 4 L, BUN 11, Creatinine 0.48 L, Estim Creat Clear Calc 166.60, Est GFR (MDRD) Af Amer 193, Est GFR (MDRD) Non-Af 160, BUN/Creatinine Ratio 23.0 H, Glucose 88, Calcium 6.6 L, Magnesium 5.6 H*, Total Bilirubin 0.40, AST 52 H, ALT 120 H, Alkaline Phosphatase 96, Lactate Dehydrogenase 410 H, Total Protein 5.7 L, Albumin 2.3 L, Globulin 3.4, Albumin/Globulin Ratio 0.7 L D/C Instructions Discharge Diet: No restrictions May resume sexual activity in: 4-6 weeks Call your doctor if your incision/area has: Continuous Slow Oozing, Sudden Increased Bleeding, Increased Pain/ Swelling, Increased Redness and Foul Smelling Discharge Call your doctor if you observe: Fever of 101 or Higher, Dizziness, Fainting spells, Chest pain and Calf discomfort Additional Instructions: call [facility] if development of headaches, right upper quadrant pain, chest pain, or shortness of breath. Call if blood pressure exceeds or meets 150/100. Please Follow Up With: Val Stinson DO When: Call [phone] to make an appointment with your doctor in 1 week. Meaningful Use Info Meaningful Use Diagnoses (Choose all that apply): None applicable Discharge Plan Admission Reason For Visit: hellp syndrome Attending Provider: Val Stinson Primary Care Provider: Care Physician,No Primary Instructions Patient Instructions: HELLP Syndrome Discharge Orders/Prescriptions Prescriptions: New nifedipine [Procardia XL] 30 mg tablet extended release 24hr 30 mg PO BID Qty: 60 3RF No Action calcium carbonate [Calcium 600] 600 mg calcium (1,500 mg) tablet 600 mg PO DAILY 28-800 mg-mcg tablet PO Referrals / Follow Up: Care Physician,No Primary [Primary Care Provider] - Disposition Patient Disposition: Home, Self Care Charges/Coding Multi Select Codes Visit Charges Visit Charges: 85723 Disch Hosp
--- NOTE | 2023-04-27 14:46 | NURSING ---
dr babin reviewed BP's ok for dc to home
--- NOTE | 2023-04-27 15:02 | NURSING ---
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
== END 2023-04-27 15:40 | disposition home or self-care (01) | DRG 776 ==
LOC: WPOUT 04-28 13:51 → WP 04-28 13:51
PROVIDERS: Admitting Provider Obstetrics & Gynecology; Referring Provider Obstetrics & Gynecology; Visit Provider Obstetrics & Gynecology
DX: O14.25 HELLP syndrome, complicating the puerperium (principal); Z3A.00 Weeks of gestation of pregnancy not specified
CPT/HCPCS: 96365; 96375 ×2; 96376 ×2; 74177; 76705; 80053; 82565; 83615; 83735; 84450; 84460; 84550; 85025; 85027; 85384; 85461; 85610; 85730; 86850; 86900; 86901; 90384; J7120; Q9967; A4216; J2790; J2791